=== PATIENT | male | born 1965 | race African-American/Black ===

== ENCOUNTER 2017-02-03 13:59 | Emergency (ER) | payer OTHER ==
[~2017-02-03] VITALS: Ht 180.3 cm; Wt 168.2 kg
[2017-02-03] MEDS ORDERED: LEVOFLOXACIN 500 MG/D5% WATER 100 ML IV ONE (15:45)
[2017-02-03] MEDS ORDERED: LEVOFLOXACIN 750 MG/D5% WATER 150 ML IV ONE (16:00)
[2017-02-03 16:14] LABS: BASOPHILS % (AUTO) 0.7 % (0.0-2.0); EOSINOPHILS % (AUTO) 7.9 % (1.0-6.0); HEMOGLOBIN 13.3 g/dL (13.5-17.5); LYMPHOCYTES # (AUTO) 1.5 K/uL (1.0-4.8); LYMPHOCYTES % (AUTO) 18.1 % (22.0-44.0); MEAN CORPUSCULAR HEMOGLOBIN 28.7 pg (26.0-34.0); MEAN CORPUSCULAR HGB CONC 34.1 G/dL (31.0-37.0); MEAN CORPUSCULAR VOLUME 84 fL (80-100); MONOCYTES % (AUTO) 11.8 % (2.0-9.0); NEUTROPHILS # (AUTO) 5.2 K/uL (1.8-7.7); NEUTROPHILS % (AUTO) 61.5 % (40.0-70.0); PLATELET COUNT (AUTO) 131 K/uL (150-450); RED BLOOD CELL COUNT(AUTO) 4.64 MIL/uL (4.50-5.90); RED CELL DISTRIBUTION WIDTH 15.8 % (11.5-14.5); WHITE BLOOD COUNT (AUTO) 8.4 K/uL (4.5-11.0)
[2017-02-03 16:20] LABS: CALCIUM, TOTAL 8.3 mg/dL (8.8-10.5); CREATININE 1.73 mg/dL (0.60-1.30); POTASSIUM 3.8 mmol/L (3.5-5.1)
[2017-02-03 16:25] LABS: ALBUMIN 3.2 g/dL (3.4-5.0); BILIRUBIN,TOTAL 0.5 mg/dL (0.1-1.0); TOTAL PROTEIN, SERUM 7.2 g/dL (6.4-8.2)
[2017-02-03 16:35] LABS: RBC MORPHOLOGY COMMENT NORMAL RBC MORPH
[2017-02-03 17:20] VITALS: BP 132/81
== END 2017-02-03 17:38 | disposition home or self-care (01) ==
LOC: EMS 14:01
DX: J18.9 Pneumonia, unspecified organism (principal); I12.9 Hypertensive chronic kidney disease with stage 1 through stage 4 chronic kidney disease, or unspecified chronic kidney disease; N18.9 Chronic kidney disease, unspecified; E78.00 Pure hypercholesterolemia, unspecified; Z88.0 Allergy status to penicillin
CPT/HCPCS: 36415; 71020; 80053; 83880; 84484; 85025; 87040; 93005; 96365; 99285; J1956

== ENCOUNTER 2017-08-04 18:59 | Emergency (ER) | payer OTHER ==
[~2017-08-04] VITALS: Ht 182.9 cm; Wt 172.7 kg
[2017-08-04 21:15] LABS: INFLUENZA TYPE A NEGATIVE FOR TYPE A (NEGATIVE); INFLUENZA TYPE B NEGATIVE FOR TYPE B (NEGATIVE)
[2017-08-04] MEDS ORDERED: DIGO125T PO (22:49)
[2017-08-04] MEDS ORDERED: ISOS20TA9 PO (22:49)
[2017-08-04] MEDS ORDERED: FLUO-191 PO (22:49)
[2017-08-04] MEDS ORDERED: BUME1TAB17 PO (22:49)
[2017-08-04] MEDS ORDERED: CARV25 PO (22:49)
[2017-08-04] MEDS ORDERED: ALLO100T PO (22:49)
[2017-08-04] MEDS ORDERED: ATOR40TA28 PO (22:49)
[2017-08-04] MEDS ORDERED: ASPI81TA39 PO (22:49)
[2017-08-04] MEDS ORDERED: CETI-290 PO (22:49)
[2017-08-04] MEDS ORDERED: SPIR25 PO (22:49)
[2017-08-04] MEDS ORDERED: CLOP75 PO (22:49)
[2017-08-04 23:46] VITALS: BP 128/96
== END 2017-08-04 23:58 | disposition home or self-care (01) ==
LOC: EMS 19:01
DX: J18.9 Pneumonia, unspecified organism (principal); I11.0 Hypertensive heart disease with heart failure; I50.9 Heart failure, unspecified; E78.00 Pure hypercholesterolemia, unspecified; Z88.0 Allergy status to penicillin; Z95.810 Presence of automatic (implantable) cardiac defibrillator; Z79.82 Long term (current) use of aspirin
CPT/HCPCS: 87804; 99285